=== PATIENT | female | born 1970 | race Caucasian/White ===

== ENCOUNTER 2024-05-20 10:36 | Outpatient (CLI) | payer BC, SELFPAY ==
--- NOTE | ~2024-05-20 | MR_ITS ---
MRI of the right knee Clinical history: Pain Technique: Coronal proton density and proton density-weighted images, sagittal proton-density and T2 fat-sat images, and axial proton-density fat-saturated images were acquired. Findings: Anterior and posterior cruciate ligaments are intact. There is soft tissue edema about the MCL. Possible partial tearing of the deep meniscofemoral fibers of the MCL. Lateral collateral ligame nt complex is intact. Popliteus tendon is intact. Medial and lateral menisci are intact, without evidence of tear. There is mild chondromalacia patella at the apex. Remaining articular cartilage is well preserved. Extensor mechanism is intact. No joint effusion or Faith's cyst. Impression: Grade 1 to mild grade 2 MCL sprain, as detailed above. Mild chondromalacia patella. Reviewed, dictated and finalized at [facility]. E WORKER Impression: Grade 1 to mild grade 2 MCL sprain, as detailed above. Mild chondromalacia patella.
== END 2024-05-20 10:37 | disposition home or self-care (01) ==
LOC: GOSHIMG 10:37
PROVIDERS: PCP Nurse Practitioner Family; Visit Provider Nurse Practitioner Family
DX: M25.561 Pain in right knee (principal)
CPT/HCPCS: 73721